=== PATIENT | female | born 1935 | race Caucasian/White ===

== ENCOUNTER 2017-07-15 12:37 | Emergency (ER) | payer MEDICARE ==
[2017-07-15 13:03] VITALS: BP 135/71
--- NOTE | 2017-07-15 15:31 | RAD ---
INDICATION: Right knee pain 3 days after a fall down the stairs COMPARISON: None TECHNIQUE: 4 view radiograph of the right knee. FINDINGS: The visualized bones are well-corticated and properly aligned. Degenerative changes include calcification overlying the expected location of the medial and lateral menisci. There is mild narrowing of the medial compartment as well as narrowing of the patellofemoral joint. There is a small suprapatellar joint effusion.. There is no acute fracture, dislocation or other focal bony abnormality. IMPRESSION: Small suprapatellar joint effusion and degenerative changes as described above without radiographically apparent fracture or dislocation. If the patient's symptoms persist, follow-up imaging is recommended.
--- NOTE | 2017-07-29 07:40 | UC ---
Knee Pain HPI - HPI Summary HPI Summary: RIGHT KNEE PAIN X 2 DAYS S/P FALL ON HER RIGHT KNEE 2 DAYS AGO + PAIN , MILD SWELLING - History of Current Complaint Chief Complaint: UCLowerExtremity Stated Complaint: LEG COMPLAINT Time Seen by Provider: 07/15/17 14:35 Hx Obtained From: Patient Onset/Duration: Sudden Onset, Lasting Days - 2, Still Present Severity Initially: Moderate Severity Currently: Moderate Pain Intensity: 7 Pain Scale Used: 0-10 Numeric Character: Aching Aggravating Factor(s): Movement, Weight Bearing Alleviating Factor(s): Rest Associated Signs And Symptoms: Positive: Swelling. Negative: Redness, Bruising , Fever, Weakness, Numbness, Tingling Able to Bear Weight: Yes - Allergies/Home Medications Allergies/Adverse Reactions: Allergies Allergy/AdvReac Type Severity Reaction Status Date / Time Penicillins Allergy Intermediate Rash Verified 07/15/17 12:57 Tetracycline Allergy Intermediate Rash Verified 07/15/17 12:57 Home Medications: Home Medications Aspirin EC Low Dose* [Ecotrin EC Low Dose 81 MG*] 81 mg PO DAILY 07/15/17 [ History Confirmed 07/15/17] Cholecalciferol TAB* [Vitamin D TAB*] 1,000 unit PO DAILY 07/15/17 [History Confirmed 07/15/17] Citalopram TAB* [CeleXA TAB*] 10 mg PO DAILY 07/15/17 [History Confirmed ] Fluticasone NASAL SPRAY 50MCG* [Flonase NASAL SPRAY 50MCG*] 2 spray BOTH NARES DAILY 07/15/17 [History Confirmed 07/15/17] Levothyroxine TAB* [Synthroid TAB*] 88 mcg PO DAILY 07/15/17 [History Confirmed 07/15/17] Niacin [Niacin Time Release] 500 mg PO DAILY 07/15/17 [History Confirmed ] Propranolol TAB* [Inderal TAB*] 10 mg PO BID 07/15/17 [History Confirmed ] PMH/Surg Hx/FS Hx/Imm Hx Endocrine History: Hypothyroidism Neurological History: Migraine - Surgical History Surgical History: Yes Surgery Procedure, Year, and Place: hysterectomy/appendectomy. wrist surgery. toe. nose - Family History Known Family History: Positive: Hypertension Negative: Diabetes - Social History Alcohol Use: Daily Alcohol Amount: glass of wine Substance Use Type: None Smoking Status (MU): Never Smoked Tobacco Review of Systems Constitutional: Negative Skin: Negative Eyes: Negative ENT: Negative Respiratory: Negative Cardiovascular: Negative Is Patient Immunocompromised?: No All Other Systems Reviewed And Are Negative: Yes Physical Exam Triage Information Reviewed: Yes Appearance: Well-Appearing, No Pain Distress, Well-Nourished Vital Signs: Initial Vital Signs Temp 98.2 F 07/15/17 12:54 Pulse 66 07/15/17 12:54 Resp 16 07/15/17 12:54 BP 135/71 07/15/17 12:54 Pulse Ox 100 07/15/17 12:54 Vital Signs Reviewed: Yes Eyes: Positive: Conjunctiva Clear ENT: Positive: Normal ENT inspection, Hearing grossly normal, Pharynx normal Neck: Positive: Supple, Nontender, No Lymphadenopathy Respiratory: Positive: Chest non-tender, Lungs clear, Normal breath sounds Cardiovascular: Positive: RRR, No Murmur, Pulses Normal Musculoskeletal: Positive: Other: - RIGHT KNEE : NO EFFUSION , MILD SWELLNG, + MILD DIFFUSE TENDERNESS, GOOD ROM ON FLEXION AND EXTENSION Skin Exam: Normal Knee Pain Course/Dx - Differential Dx/Diagnosis Provider Diagnoses: CONTUSION RIGHT KNEE Discharge - Discharge Plan Condition: Stable Disposition: HOME Patient Education Materials: Knee Pain (ED) Referrals: No Primary Care Phys,NOPCP [Primary Care Provider] - 7 Days Additional Instructions: contusion of right knee no fracture seen on the xray cont. with rest, ice, Tylenol as needed for pain follow up with your pcp in one week
== END 2017-07-15 14:43 | disposition home or self-care (01) ==
LOC: UCCORT 12:37
DX: S80.01XA Contusion of right knee, initial encounter (principal); W19.XXXA Unspecified fall, initial encounter; Y93.9 Activity, unspecified; Y92.9 Unspecified place or not applicable; E03.9 Hypothyroidism, unspecified; G43.909 Migraine, unspecified, not intractable, without status migrainosus; Z79.82 Long term (current) use of aspirin; Z90.710 Acquired absence of both cervix and uterus; Z88.0 Allergy status to penicillin
CPT/HCPCS: 99201; G0463